=== PATIENT | male | born 2005 | race Caucasian/White ===

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

== ENCOUNTER 2025-03-31 19:59 | Emergency (ER) | payer BC, MEDICAID ==
[~2025-03-31] VITALS: Ht 177.8 cm; Wt 84.1 kg
--- NOTE | 2025-03-31 20:07 | ELECTROCARDIOGRAPH REPORT ---
[facility] Test Date: 2025-03-31 Test Time: 20:06:11 Pat Name: TOYA BOWENS Department: EMERGENCY ROOM Patient ID: [facility]-[id number] Room: Gender: M Business Process Coordinator: TOMA : 2005 Requested By: KELSEA HOUSE Order Number: [id number] Reading MD: Dr. Hadley Epperson Measurements Intervals [place] Rate: 68 P: 56 FL: 140 QRS: 101 QRSD: 105 T: 53 QT: 375 QTc: 399 Interpretive Statements Sinus rhythm Borderline right axis deviation Electronically Signed On 05-07-2025 18:38:[address] Hadley Epperson Please click the below link to view image of tracing.
[2025-03-31 20:16] LABS: MEAN PLATELET VOLUME 9.6 FL (7.4-10.4); RED CELL DISTRIBUTION WIDTH 12.8 % (11.5-14.5)
[2025-03-31 20:23] VITALS: BP 132/75; PULSE 69; RESP 6; TEMP 98.7; O2SAT 98
[2025-03-31 20:40] LABS: CREATININE 1.11 MG/DL (0.60-1.10); PRO BRAIN NATRIURETIC PEPTIDE < 30 PG/ML (0-125); TOTAL CARBON DIOXIDE 28.5 MMOL/L (24-32); eCRCL 111 ML/MIN; eGFR 85 ML/MIN
--- NOTE | 2025-03-31 20:55 | RADIOLOGY REPORT ---
CHEST RADIOGRAPH REASON FOR EXAM: Chest pain COMPARISON: DI CHEST,SINGLE VIEW on DOS: 05/07/24, DI CHEST,SINGLE VIEW on DOS: 04/26/23, CHEST,SINGLE V IEW on DOS: 12/27/21 TECHNIQUE: One view of the chest is provided FINDINGS: The cardiomediastinal silhouette is within normal limits for technique. There is no focal a irspace disease. There is no significant pleural effusion. No acute bony abnormality is identified. IMPRESSION: No radiographic evidence of acute cardiopulmonary process.
--- NOTE | 2025-03-31 21:28 | Physician Documentation ---
History of Present Illness ~ Chief Complaint: Shortness of Breath Stated Complaint: SOB CP Time Seen by MD: 21:27 Primary Medical Doctor: [facility] HPI Patient presents to the emergency room with chief complaint of intermittent ch est pain and shortness of breath onset yesterday. Patient was seen here last April for similar complaints with a negative workup. He states that chest pain is intermittent that can not be exacerbated or relieved by anything and comes sporadically for just a moment and then leaves. He denies one-sided leg pain or swelling to his lower extremities. Denies fever or cough. Medication Reconciliation Allergies: Coded Allergies: No Known Allergies (Unverified , 05/07/24) Miscellaneous Medications Home Med List (No Home Medications), (Reported) Past Medical History Past Medical History: No Pertinent History Past Surgical History: no surgical history Alcohol Use: None Drug Use: none Lives with: Mother, Father Lives In: Home Occupation: child Review of Systems ROS All review of systems negative except as per HPI Physical Exam Vital Signs: Temperature: 98.7, Heart Rate: 69, Respiratory Rate: 6, BP: 132/75, Pulse Oximetry: 98, Weight: 84.090 Oxygen Flow Rate: 0 Physical Exam General: Patient is awake, alert, oriented x4 in no acute distress and well appearing.~ Head: Normocephalic and atraumatic. Eyes: Conjunctival normal. EOMI. PERRL. ENT: Mucous membranes moist. Neck: Supple, trachea is midline. Chest: Clear to auscultation bilaterally without rales, rhonchi, or wheezes. There is no accessory muscle use or retractions. Cardiac: RRR without murmurs, gallops, or rubs. Extremities: Normal strength. Normal range of motion. No deformities or edema. No calf tenderness to palpation Progress Results/Orders Results/Orders Orders - ANDREA GARCIA MD Chest,Single View (03/31/25 20:17) Monitor (03/31/25 20:04) Saline Lock (03/31/25 20:04) Oxygen (03/31/25 20:04) Hs Troponin I W Calculations (03/31/25 22:04) Hs Troponin I W Calculations (03/31/25 23:04) Completed Orders - ANDREA GARCIA MD Chest,Single View (03/31/25 20:17) Cbc/Diff (03/31/25 20:04) BMP (03/31/25 20:04) PBNP (03/31/25 20:04) Electrocardiogram (03/31/25 20:04) Hs Troponin I W Calculations (03/31/25 20:04) Vital Signs 03/31/25 20:23 Temp 98.7 Pulse 69 Resp 6 B/P (MAP) 132/75 Pulse Ox 98 O2 Flow Rate 0 Laboratory Tests Test 03/31/25 20:06 White Blood Count 9.1 Red Blood Count 5.06 Hemoglobin 16.0 Hematocrit 46.2 Mean Corpuscular Volume 91.4 Mean Corpuscular Hemoglobin 31.7 H Mean Corpuscular Hemoglobin Concent 34.7 Red Cell Distribution Width 12.8 Platelet Count 208 Mean Platelet Volume 9.6 Neutrophils (%) (Auto) 58.7 Lymphocytes (%) (Auto) 31.2 Monocytes (%) (Auto) 6.1 Eosinophils (%) (Auto) 3.2 Basophils (%) (Auto) 0.8 Neutrophils # (Auto) 5.4 Lymphocytes # (Auto) 2.8 Monocytes # (Auto) 0.6 Eosinophils # (Auto) 0.3 Basophils # (Auto) 0.1 CBC Comment Sodium Level 141 Potassium Level 3.6 Chloride Level 106 Carbon Dioxide Level 28.5 Anion Gap 7 L Blood Urea Nitrogen 16 Creatinine 1.11 H Estimated GFR/1.73 m2 85 BUN/Creatinine Ratio 14.4 Glucose Level 101 Calcium Level 9.0 Troponin I High Sensitivity 5 Pro-B-Type Natriuretic Peptide < 30 Albumin 4.0 Chemistry Comments EKG/XRAY/CT/US/VASC/MRI EKG : Additional Comment EKG interpreted by myself shows time of 2005, rate 68, sinus rhythm, borderline right axis deviation, no ST changes Chest X-Ray : Additional Comments Exam: CHEST,SINGLE VIEW CHEST RADIOGRAPH REASON FOR EXAM: Chest pain COMPARISON: DI CHEST,SINGLE VIEW on DOS: 05/07/24, DI CHEST,SINGLE VIEW on DOS: 04/26/23, CHEST,SINGLE VIEW on DOS: 12/27/21 TECHNIQUE: One view of the chest is provided FINDINGS: The cardiomediastinal silhouette is within normal limits for technique. There is no focal airspace disease. There is no significant pleural effusion. No acute bony abnormality is identified. IMPRESSION: No radiographic evidence of acute cardiopulmonary process. Medical Decision Making Findings Patient presents to the emergency room with chest pain shortness of breath. Differentials include but are not limited to musculoskeletal pain, anxiety, pulmonary embolism, ACS therefore emergent labs ordered. No calf tenderness no tachycardia no hypoxia and he had not feel patient requires workup into possible pulmonary embolism especially in the light of intermittent symptoms. Unknown cause for patient's pain. He is low cardiovascular risk with a heart score of 0. Departure Disposition: 01 HOME / SELF CARE / HOMELESS Impression: Primary Impression: Chest pain Condition: Stable Discharge Instructions: Nonspecific Chest Pain, Adult Referrals: NO PRIMARY CARE PROVIDER (PCP) Education Educated: Patient Educated regarding: need for follow up Signature Scribe Signature: No scribe Attestation: The note accurately reflects work and decisions made by me.Andrea Garcia MD 03/31/25 21:53 ANDREA GARCIA MD Mar 31, 2025 21:28
== END 2025-03-31 22:01 | disposition home or self-care (01) ==
LOC: ER 19:59
DX: R07.89 Other chest pain (principal); R06.02 Shortness of breath
CPT/HCPCS: 36415; 71045; 80048; 83880; 84484; 85025; 93005; 99285

== ENCOUNTER 2025-08-04 13:01 | Emergency (ER) | payer BC ==
[~2025-08-04] VITALS: Ht 177.8 cm; Wt 87.6 kg
[2025-08-04 13:15] VITALS: BP 124/60; PULSE 56; RESP 18; O2SAT 99
[2025-08-04 13:30] LABS: MEAN PLATELET VOLUME 9.2 FL (7.4-10.4); RED CELL DISTRIBUTION WIDTH 12.7 % (11.5-14.5)
[2025-08-04 13:33] LABS: LEUKOCYTE ESTERASE ,URINE NEGATIVE (Neg); NITRITES, URINE NEGATIVE (Neg); OCCULT BLOOD,URINE NEGATIVE (Neg)
[2025-08-04 13:34] LABS: UA COLLECTION TYPE OTHER
[2025-08-04 13:50] LABS: CREATININE 0.99 MG/DL (0.60-1.10); TOTAL CARBON DIOXIDE 29.8 MMOL/L (24-32); eCRCL 124 ML/MIN; eGFR > 90 ML/MIN
--- NOTE | 2025-08-04 14:22 | RADIOLOGY REPORT ---
ULTRASOUND OF SCROTUM AND CONTENTS. INDICATION: Testicular pain COMPARISON: None TECHNIQUE: Multiple real-time grayscale sonographic and color and duplex Doppler images of the scrotum and its contents were obtained. FINDINGS: The right testicle measures 4.3 x 2.4 x 2.8 cm. The left testicle measures 4.0 x 2.4 x 2.7 cm. Both testicles demonstrate homogeneous echotexture without evidence of focal lesions. The right epididymis measures 0.9 cm. The left epididymis measures 1.1 cm. Subsequent color and duplex Doppler interrogation of the testes demonstrated symmetric normal vascular flow to both testicles. No focal areas of hyperemia were seen. Trace left varicocele. IMPRESSION: No evidence of torsion, epididymitis, and/or orchitis. Trace left varicocele.
--- NOTE | 2025-08-04 14:30 | Physician Documentation ---
History of Present Illness ~ Chief Complaint: Testicular Pain Stated Complaint: "PAIN IN LOWER AREA" Time Seen by MD: 13:41 Primary Medical Doctor: [facility] HPI This is a 19-year-old male who presents with one day of suprapubic abdominal pain and testicular pain described as achy. Patient reports monogamous buttermaker sexual partner for the past two years and reports consistent condom use. Reports the pain is better with rest and worsens with physical activity. Patient reports no hematuria, dysuria, or penile discharge. Patient reports no fever, chills, or other systemic symptoms. Patient reports no other acute symptoms or concerns. Medication Reconciliation Allergies: Coded Allergies: No Known Allergies (Unverified , 05/07/24) Miscellaneous Medications Home Med List (No Home Medications), (Reported) Past Medical History Past Medical History: No Pertinent History Past Surgical History: no surgical history Alcohol Use: None Drug Use: none Lives with: Mother, Father Lives In: Home Occupation: child Review of Systems ROS As stated above in the HPI, otherwise all systems are reviewed and negative. Physical Exam Vital Signs: Temperature: 99.0, Source: Temporal, Heart Rate: 56, Respiratory Rate: 18, BP: 124/60, Pulse Oximetry: 99, Weight: 87.600 Oxygen Flow Rate: 0 Physical Exam VITALS: Reviewed and as above. GENERAL: Alert, nontoxic appearing, no apparent distress. RESPIRATORY: No increased work of breathing, no respiratory distress, speaking in full clear sentences, clear lung sounds in all [place] CV: Regular rate and rhythm no murmur BACK: No CVA tenderness GI: Soft, nontender, no rebound, no guarding, bowel sounds present : No testicular or scrotal swelling, no scrotal ecchymosis or erythema, testicles nontender to palpation, no large testicular masses Progress Results/Orders Results/Orders Orders - ANDREW NGUYEN Us Testic/W/Duplex (08/04/25 13:15) Completed Orders - ANDREW NGUYEN Us Testic/W/Duplex (08/04/25 13:15) Urinalysis, Cult If Indicated (08/04/25 13:18) Cbc/Diff (08/04/25 13:18) Lipase (08/04/25 13:18) CMP (08/04/25 13:18) Ibuprofen Tablet (Motrin Tablet) (08/04/25 14:55) Medications Received in ER Medications (Trade) Dose Ordered Sig/Staci Route PRN Reason Start Time Stop Time Status Last Admin Dose Admin (Motrin tablet) 800 mg ONCE ONCE PO 08/04/25 14:55 08/04/25 14:56 DC 08/04/25 14:57 800 MG Vital Signs 08/04/25 08/04/25 13:15 14:59 Temp 99.0 99.0 Pulse 56 Resp 18 B/P (MAP) 124/60 Pulse Ox 99 O2 Flow Rate 0 Laboratory Tests Test 08/04/25 13:20 08/04/25 13:22 Urine Specimen Description Other Urine Color Straw Urine Clarity Clear Urine pH 7.0 Urine Specific [place] 1.020 Urine Protein Negative Urine Glucose (UA) Negative Urine Ketones Negative Urine Occult Blood Negative Urine Nitrite Negative Urine Bilirubin Negative Urine Urobilinogen 0.2 Urine Leukocyte Esterase Negative Urine Culture Indicated Not ind Volume Urine Centrifuged 10 ml Urine Comment White Blood Count 7.8 Red Blood Count 4.89 Hemoglobin 15.6 Hematocrit 44.5 Mean Corpuscular Volume 90.9 Mean Corpuscular Hemoglobin 31.9 H Mean Corpuscular Hemoglobin Concent 35.1 Red Cell Distribution Width 12.7 Platelet Count 210 Mean Platelet Volume 9.2 Neutrophils (%) (Auto) 66.9 Lymphocytes (%) (Auto) 22.7 Monocytes (%) (Auto) 9.2 Eosinophils (%) (Auto) 0.8 Basophils (%) (Auto) 0.4 Neutrophils # (Auto) 5.2 Lymphocytes # (Auto) 1.8 Monocytes # (Auto) 0.7 Eosinophils # (Auto) 0.1 Basophils # (Auto) 0.0 CBC Comment Sodium Level 142 Potassium Level 3.9 Chloride Level 107 Carbon Dioxide Level 29.8 Anion Gap 5 L Blood Urea Nitrogen 15 Creatinine 0.99 Estimated GFR/1.73 m2 > 90 BUN/Creatinine Ratio 15.2 Glucose Level 97 Calcium Level 9.7 Total Bilirubin 0.6 Aspartate Amino Transf (AST/SGOT) 19 Alanine Aminotransferase (ALT/SGPT) 29 Alkaline Phosphatase 60 Total Protein 7.7 Albumin 4.2 Globulin 3.5 Albumin/Globulin Ratio 1.2 Lipase 24 Chemistry Comments EKG/XRAY/CT/US/VASC/MRI Ultrasound : Impression Exam: US TESTIC/W/DUPLEX ULTRASOUND OF SCROTUM AND CONTENTS. INDICATION: Testicular pain COMPARISON: None TECHNIQUE: Multiple real-time grayscale sonographic and color and duplex Doppler images of the scrotum and its contents were obtained. FINDINGS: The right testicle measures 4.3 x 2.4 x 2.8 cm. The left testicle measures 4.0 x 2.4 x 2.7 cm. Both testicles demonstrate homogeneous echotexture without evidence of focal lesions. The right epididymis measures 0.9 cm. The left epididymis measures 1.1 cm. Subsequent color and duplex Doppler interrogation of the testes demonstrated symmetric normal vascular flow to both testicles. No focal areas of hyperemia were seen. Trace left varicocele. IMPRESSION: No evidence of torsion, epididymitis, and/or orchitis. Trace left varicocele. Electronically Signed by:CHAPIN WALDEN MD Date & Time: 08/04/251419 Dictated by: CHAPNI WALDEN MD Dictation date and time: 08/04/251419 Medical Decision Making Additional information obtaine: N/A Findings This is a 19-year-old male presented to the emergency department due to concern for testicular pain described as achy radiating into suprapubic region, ultrasound of testicle was demonstrated evidence of small varicocele otherwise normal exam and reassuring against testicular torsion as blood flow intact bilaterally to both testicles, physical exam was reassuring with minimal to no tenderness to testicular exam, abdomen was soft and nontender. Lab work reassuring and vital signs stable. With shared decision-making further imaging and workup not indicated. Ultrasound findings and description of pain I suspect this to be related to varicocele, patient is appropriate for outpatient follow up and has been instructed to follow up with primary care provider and or urologist for further management of varicocele. Patient provided careful return to care precautions, follow up instructions, and home care instructions which he verbalized understanding of. Urinary Diff Dx:Considerations: Include: Cholelithiasis, Choleangitis, Cholecystitis, Epididymitis, Renal failure, Renal infarction, Strain, Urolithiasis, Urinary Obstruction, Urethritis, Urinary retention, UTI Genital Diff Dx:Considerations: Include: Abscess, Cellulitis, Epididymitis, Entrapment injury, Abebe's gangrene, Foreign body, Facture penis, Hydrocele, Prostatitis, Testicular torsion, Torsion-epididymis, Torsion-appendiceal, Urinary retention, Urethritis, Urethritis-chlamydial, Urethritis-gonococcal, UTI Departure Time of Disposition: 14:49 Disposition: 01 HOME / SELF CARE / HOMELESS Impression: Primary Impression: Pain in testicle Qualified Codes: N50.811 - Right testicular pain; N50.812 - Left testicular pain Condition: Improved Discharge Instructions: Varicocele Additional Instructions: I suspect your pain is due to swelling to the veins in your testicle, please see the attached home care instructions. I recommend following up with her primary care provider for referral to urologist for further evaluation and management of the varicocele. Please follow up with your primary care provider in the next few days. Please return to the emergency department for any new or worsening concerning symptoms including but not limited to development of fever, penile discharge, or if your pain becomes suddenly worse. Please use ibuprofen and or Tylenol as needed for pain as directed by [id number] packaging. Referrals: NO PRIMARY CARE PROVIDER (PCP) Education Educated: Patient Educated regarding: diagnosis, treatment, prognosis, need for follow up Signature Scribe Signature: No Scribe Attestation: The note accurately reflects work and decisions made by me.GIO Collins 08/04/25 21:32 ANDREW NGUYEN Aug 04, 2025 14:30
[2025-08-04] MEDS: ibuprofen tablet 400 MG TABLET PO ONE (14:57)
[2025-08-04 14:59] VITALS: TEMP 99
== END 2025-08-04 15:00 | disposition home or self-care (01) ==
LOC: ER 13:02
DX: N50.812 Left testicular pain (principal); N50.811 Right testicular pain
CPT/HCPCS: 36415; 76870; 80053; 81003; 83690; 85025; 93976; 99284